=== PATIENT | female | born 1940 | race Caucasian/White ===

== ENCOUNTER 2017-11-22 17:34 | Observation (INO) | payer MEDICARE, OTHER ==
[~2017-11-22] VITALS: Ht 172.7 cm; Wt 56.0 kg
[2017-11-22 17:36] VITALS: BP 222/106; PULSE 123; RESP 18; TEMP 98.1; O2SAT 99
--- NOTE | 2017-11-22 19:57 | PD ---
HPI Chief Complaint: Hypertension Time Seen by Provider: 19:57 Travel History International Travel<30 days: No Contact w/Intl Traveler<30days: No Traveled to known affect area: No History of Present Illness HPI 77-year-old female who states she has a history of hypertension, currently not treated, presents the emergency department for evaluation of elevated blood pressure. Patient has also had some mild epigastric discomfort with associated nausea insert blood pressure has been elevated. She states that she just feels tired and off. Denies any fever or chills. No cough or chest congestion. No focal deficits or weakness. No other symptoms to report. PFSH Past Medical History Hypertension: Yes Social History Alcohol Use: No Tobacco Use: No Substance Use: No Allergies-Medications (Allergen,Severity, Reaction): Coded Allergies: penicillin G (Verified Allergy, Unknown, 11/22/17) Reported Meds & Prescriptions Reported Meds & Active Scripts Active Reported Potassium Chloride ER (Potassium Chloride) 10 Meq Cap 10 Meq PO DAILY Centrum Silver Women Tablet (Multivit-Min/Iron/Folic/Lutein) 8 Mg Iron-400 Mcg- 300 Mcg Tablet 1 Tab PO DAILY Vitamin C (Ascorbic Acid) 250 Mg Tab 1,000 Mg PO DAILY Aspirin Low Dose (Aspirin) 81 Mg Chew 81 Mg CHEW DAILY Review of Systems Except as stated in HPI: all other systems reviewed are Neg Physical Exam Narrative GENERAL: Well-nourished elderly female patient, in no acute distress. SKIN: Focused skin assessment warm/dry. HEAD: Atraumatic. Normocephalic. EYES: Pupils equal and round. No scleral icterus. No injection or drainage. ENT: No nasal bleeding or discharge. Mucous membranes pink and moist. NECK: Trachea midline. No JVD. CARDIOVASCULAR: Tachycardic rate and rhythm. RESPIRATORY: No accessory muscle use. Clear to auscultation. Breath sounds equal bilaterally. GASTROINTESTINAL: Abdomen soft, non-tender, nondistended. Hepatic and splenic margins not palpable. MUSCULOSKELETAL: No obvious deformities. No clubbing. No cyanosis. No edema. NEUROLOGICAL: Awake and alert. No obvious cranial nerve deficits. Motor grossly within normal limits. Normal speech. PSYCHIATRIC: Appropriate mood and affect; insight and judgment normal. Data Data Last Documented VS Vital Signs Date Time Temp Pulse Resp B/P (MAP) Pulse Ox O2 Delivery O2 Flow Rate FiO2 11/22/17 21:30 95 16 156/72 (100) 99 Room Air 11/22/17 17:36 98.1 Orders Orders Electrocardiogram (11/22/17 19:57) Basic Metabolic Panel (Bmp) (11/22/17 19:57) Ckmb (Isoenzyme) Profile (11/22/17 19:57) Complete Blood Count With Diff (11/22/17 19:57) Magnesium (Mg) (11/22/17 19:57) Prothrombin Time / Inr (Pt) (11/22/17 19:57) Act Partial Throm Time (Ptt) (11/22/17 19:57) Troponin I (11/22/17 19:57) Chest, Single Ap (11/22/17 19:57) Ecg Monitoring (11/22/17 19:57) Bilateral Bp Monitoring (11/22/17 19:57) Iv Access Insert/Monitor (11/22/17 19:57) Oximetry (11/22/17 19:57) Oxygen Administration (11/22/17 19:57) Aspirin Chew (Aspirin Chew) (11/22/17 20:00) Sodium Chloride 0.9% Flush (Ns Flush) (11/22/17 20:00) Sodium Chlorid 0.9% 500 Ml Inj (Ns 500 M (11/22/17 20:00) Hydralazine Inj (Apresoline Inj) (11/22/17 20:00) Labetalol Inj (Trandate Inj) (11/22/17 20:45) Potassium Chloride (Kcl) (11/22/17 21:30) CKMB (11/22/17 20:20) CKMB% (11/22/17 20:20) Labetalol (Trandate) (11/22/17 21:45) Activity Bed Rest With Brp (11/22/17 21:41) Vital Signs (Adult) Q4H (11/22/17 21:41) Cardiac Rhythm .As Directed (11/22/17 21:41) Notify Dr: Other .PRN (11/22/17 21:41) Notify Parameters (11/22/17 21:41) Resp Oxygen Nasal Cannula (11/22/17 ) Diet Npo (11/23/17 Breakfast) Ckmb (Isoenzyme) Profile (11/22/17 23:20) Ckmb (Isoenzyme) Profile (11/23/17 02:20) Troponin I (11/22/17 23:20) Troponin I (11/23/17 02:20) Electrocardiogram (11/22/17 23:10) Electrocardiogram (11/23/17 02:10) ^ Obtain (11/22/17 21:41) Sodium Chloride 0.9% Flush (Ns Flush) (11/22/17 21:45) Sodium Chloride 0.9% Flush (Ns Flush) (11/23/17 09:00) Acetaminophen (Tylenol) (11/22/17 21:45) Ondansetron Inj (Zofran Inj) (11/22/17 21:45) Nitroglycerin Sl (Nitrostat Sl) (11/22/17 21:45) Stone Derrickman And Rigger / Telemetry ANISA.Q8H (11/22/17 21:41) Emeka Bilateral/Knee High ANISA.QSHIFT (11/22/17 21:41) Admit Order (Ed Use Only) (11/22/17 21:41) Labs Laboratory Tests Test 11/22/17 20:20 White Blood Count 6.2 TH/MM3 Red Blood Count 5.12 MIL/MM3 Hemoglobin 14.2 GM/DL Hematocrit 41.5 % Mean Corpuscular Volume 81.1 FL Mean Corpuscular Hemoglobin 27.7 PG Mean Corpuscular Hemoglobin Concent 34.2 % Red Cell Distribution Width 13.1 % Platelet Count 392 TH/MM3 Mean Platelet Volume 8.1 FL Neutrophils (%) (Auto) 61.6 % Lymphocytes (%) (Auto) 25.0 % Monocytes (%) (Auto) 12.7 % Eosinophils (%) (Auto) 0.2 % Basophils (%) (Auto) 0.5 % Neutrophils # (Auto) 3.8 TH/MM3 Lymphocytes # (Auto) 1.6 TH/MM3 Monocytes # (Auto) 0.8 TH/MM3 Eosinophils # (Auto) 0.0 TH/MM3 Basophils # (Auto) 0.0 TH/MM3 CBC Comment DIFF FINAL Differential Comment Prothrombin Time 10.2 SEC Prothromb Time International Ratio 1.0 RATIO Activated Partial Thromboplast Time 25.7 SEC Blood Urea Nitrogen 4 MG/DL Creatinine 0.58 MG/DL Random Glucose 107 MG/DL Calcium Level 8.8 MG/DL Magnesium Level 2.0 MG/DL Sodium Level 133 MEQ/L Potassium Level 2.9 MEQ/L Chloride Level 96 MEQ/L Carbon Dioxide Level 28.5 MEQ/L Anion Gap 9 MEQ/L Estimat Glomerular Filtration Rate 101 ML/MIN Total Creatine Kinase 112 U/L Creatine Kinase MB 1.3 NG/ML Troponin I LESS THAN 0.02 NG/ML MDM Medical Decision Making Medical Screen Exam Complete: Yes Emergency Medical Condition: Yes Medical Record Reviewed: Yes Differential Diagnosis Hypertension versus hypertensive urgency versus ACS versus kidney disease versus elective right abnormality Narrative Course 77-year-old female presents to emergency department for evaluation. Patient is quite hypertensive and tachycardic upon arrival. She was given hydralazine. Patient's blood pressure remained high and she remained tachycardic. Systolic was greater than 200 sustained and her heart rate was greater than 120 bpm. I discussed this with my attending physician who advised labetalol 10 mg IV. Patient's heart rate then decreases to normal sinus rhythm and her blood pressure normalizes as well. Patient was nauseous initially with a epigastric/ chest discomfort. Once the blood pressure improved, this also resolved. I discussed the patient my attending physician. We feel that due to the patient' s or establishment with primary care, there is concern for cardiac etiology of the nausea and epigastric discomfort. She'll be admitted observation of chest pain center for serial troponins and observation. Plan is discussed with the patient and her family. They are in agreement with this plan of care. Laboratory Tests Test 11/22/17 20:20 White Blood Count 6.2 TH/MM3 Red Blood Count 5.12 MIL/MM3 Hemoglobin 14.2 GM/DL Hematocrit 41.5 % Mean Corpuscular Volume 81.1 FL Mean Corpuscular Hemoglobin 27.7 PG Mean Corpuscular Hemoglobin Concent 34.2 % Red Cell Distribution Width 13.1 % Platelet Count 392 TH/MM3 Mean Platelet Volume 8.1 FL Neutrophils (%) (Auto) 61.6 % Lymphocytes (%) (Auto) 25.0 % Monocytes (%) (Auto) 12.7 % Eosinophils (%) (Auto) 0.2 % Basophils (%) (Auto) 0.5 % Neutrophils # (Auto) 3.8 TH/MM3 Lymphocytes # (Auto) 1.6 TH/MM3 Monocytes # (Auto) 0.8 TH/MM3 Eosinophils # (Auto) 0.0 TH/MM3 Basophils # (Auto) 0.0 TH/MM3 CBC Comment DIFF FINAL Differential Comment Prothrombin Time 10.2 SEC Prothromb Time International Ratio 1.0 RATIO Activated Partial Thromboplast Time 25.7 SEC Blood Urea Nitrogen 4 MG/DL Creatinine 0.58 MG/DL Random Glucose 107 MG/DL Calcium Level 8.8 MG/DL Magnesium Level 2.0 MG/DL Sodium Level 133 MEQ/L Potassium Level 2.9 MEQ/L Chloride Level 96 MEQ/L Carbon Dioxide Level 28.5 MEQ/L Anion Gap 9 MEQ/L Estimat Glomerular Filtration Rate 101 ML/MIN Total Creatine Kinase 112 U/L Creatine Kinase MB 1.3 NG/ML Troponin I LESS THAN 0.02 NG/ML Diagnosis Primary Impression: Atypical chest pain Additional Impression: Hypertension Qualified Codes: I10 - Essential (primary) hypertension Admitting Information Admitting Physician Requests: Observation Condition: Stable Tanya Zayas Nov 22, 2017 19:57
[2017-11-22] MEDS ORDERED: hydrALAZINE HCL 20 MG/ML VIAL IV PUSH ONE (20:00)
[2017-11-22] MEDS ORDERED: SODIUM CHLORIDE 0.9% FLUSH 10 ML FLUSH IVF PRN (20:00)
[2017-11-22] MEDS ORDERED: ASPIRIN 81 MG CHEW TAB PO ONE (20:00)
[2017-11-22] MEDS ORDERED: SODIUM CHLORID 0.9% 500 ML INJ 500 ML IV ONE (20:00)
[2017-11-22 20:02] VITALS: BP 224/97
[2017-11-22] MEDS ORDERED: VITA250T3 PO (20:02)
[2017-11-22] MEDS ORDERED: ASPI81CH6 CHEW (20:02)
[2017-11-22] MEDS ORDERED: MULT1TAB61 PO (20:02)
[2017-11-22] MEDS ORDERED: POTA10CA PO (20:02)
--- NOTE | 2017-11-22 20:23 | RADRPT ---
EXAM DATE/TIME: 11/22/2017 20:08 [facility] COMPARISON: No previous studies available for comparison. INDICATIONS : Shortness of breath. MEDICAL HISTORY : Hypertension. SURGICAL HISTORY : None. ENCOUNTER: Initial ACUITY: 1 day PAIN SCORE: 0/10 LOCATION: Bilateral chest FINDINGS: A single view of the chest demonstrates the lungs to be symmetrically aerated without evidence of mas s, infiltrate or effusion. There is hyperaeration bilaterally. There is chronic pleural thickening a t both apices. The cardiomediastinal contours are unremarkable. Osseous structures are intact. CONCLUSION: No acute pulmonary infiltrates. Jonathan Carvajal MD on November 22, 2017 at 20:20 Board Certified Radiologist. This report was verified electronically.
[2017-11-22 20:45] VITALS: BP 189/81; PULSE 93; RESP 16; O2SAT 100
[2017-11-22] MEDS ORDERED: LABETALOL HCL 100 MG/20 ML VIAL IV PUSH ONE (20:45)
[2017-11-22 20:53] LABS: AUTOMATED NEUTROPHIL # 3.8 TH/MM3 (1.8-7.7); BASOPHIL % 0.5 % (0.0-2.0); EOSINOPHIL % 0.2 % (0.0-4.0); HEMATOCRIT 41.5 % (35.0-46.0); HEMOGLOBIN 14.2 GM/DL (11.6-15.3); LYMPHOCYTE # 1.6 TH/MM3 (1.0-4.8); MEAN CELL VOLUME 81.1 FL (80.0-100.0); MEAN CORPUSCULAR HEMOGLOBIN 27.7 PG (27.0-34.0); MEAN CORPUSCULAR HGB CONC 34.2 % (32.0-36.0); MEAN PLATELET VOLUME 8.1 FL (7.0-11.0); MONO % 12.7 % (0.0-8.0); MONOCYTE # 0.8 TH/MM3 (0-0.9); NEUT % 61.6 % (16.0-70.0); PLATELET COUNT 392 TH/MM3 (150-450); RED BLOOD COUNT 5.12 MIL/MM3 (4.00-5.30); RED CELL DISTRIBUTION WIDTH 13.1 % (11.6-17.2); WHITE BLOOD COUNT 6.2 TH/MM3 (4.0-11.0)
[2017-11-22 21:18] LABS: BICARBONATE 28.5 MEQ/L (21.0-32.0); BLOOD UREA NITROGEN 4 MG/DL (7-18); CALCIUM 8.8 MG/DL (8.5-10.1); CHLORIDE 96 MEQ/L (98-107); CREATININE 0.58 MG/DL (0.50-1.00); GLOMERULAR FILTRATION RATE 101 ML/MIN (>89); GLUCOSE,RANDOM 107 MG/DL (74-106); PROTHROMBIN TIME - PATIENT 10.2 SEC (9.8-11.6); SODIUM (NA) 133 MEQ/L (136-145)
[2017-11-22 21:23] LABS: TROPONIN I LESS THAN 0.02 NG/ML (0.02-0.05)
[2017-11-22 21:30] VITALS: BP 156/72; PULSE 95; RESP 16; O2SAT 99
[2017-11-22] MEDS ORDERED: POTASSIUM CHLORIDE 20 MEQ CONTROLLED RELEASE TAB PO ONE (21:30)
[2017-11-22] MEDS ORDERED: NITROGLYCERIN 0.4 MG SL 25 TABS/BTL SL PRN (21:45)
[2017-11-22] MEDS ORDERED: LABETALOL HCL 100 MG TAB PO ONE (21:45)
[2017-11-22] MEDS ORDERED: ACETAMINOPHEN 500 MG CPLT PO PRN (21:45)
[2017-11-22] MEDS ORDERED: SODIUM CHLORIDE 0.9% FLUSH 10 ML FLUSH IV FLUSH PRN (21:45)
[2017-11-22] MEDS ORDERED: ONDANSETRON HCL 4 MG/2 ML VIAL IV PUSH PRN (21:45)
[2017-11-22 22:00] VITALS: BP 133/63; PULSE 85; RESP 16; O2SAT 98
[2017-11-22 23:30] VITALS: BP 144/67; PULSE 97; RESP 16; O2SAT 97
[2017-11-23 00:03] LABS: TROPONIN I LESS THAN 0.02 NG/ML (0.02-0.05)
[2017-11-23 01:15] VITALS: BP 118/57; PULSE 76; RESP 18; TEMP 98; O2SAT 96
[2017-11-23] MEDS: D5-1/2 NS + KCL 40 MEQ INJ 1,000 ML IV SCH ×2 (01:43→07:45)
[2017-11-23 01:46] VITALS: PULSE 92
[2017-11-23 04:00] VITALS: PULSE 85
[2017-11-23 04:00] LABS: TROPONIN I LESS THAN 0.02 NG/ML (0.02-0.05)
[2017-11-23 05:17] VITALS: BP 157/78; PULSE 105; RESP 18; TEMP 98.1; O2SAT 99
[2017-11-23] MEDS ORDERED: ACETAMINOPHEN 500 MG CPLT PO PRN (07:45)
[2017-11-23 08:18] LABS: BICARBONATE 23.6 MEQ/L (21.0-32.0); CALCIUM 8.3 MG/DL (8.5-10.1); CREATININE 0.78 MG/DL (0.50-1.00)
[2017-11-23 08:20] VITALS: PULSE 98
[2017-11-23 08:26] VITALS: BP 139/79; PULSE 106; RESP 18; TEMP 98.2; O2SAT 96
[2017-11-23] MEDS ORDERED: ASPIRIN 325 MG TAB PO SCH (09:00)
[2017-11-23] MEDS ORDERED: SODIUM CHLORIDE 0.9% FLUSH 10 ML FLUSH IV FLUSH SCH (09:00)
--- NOTE | 2017-11-23 09:15 | HHI.HP ---
HPI Service Chest pain center Primary Care Physician No Primary Care Physician Chief Complaint Elevated blood pressure History of Present Illness Pleasant 77-year-old lady who recently had an episode of the flu resulting in heart coughing and rib pain associated. She was seen in an urgent care center and evaluated on Saturday, placed on antibiotics, but noted to have high blood pressure. She has not seen a physician in years but basically has had no physical problems. Since being told her blood pressure was elevated she has been watching and when she developed some epigastric discomfort and slight nausea she presented to the emergency room. Her blood pressure was significantly elevated and she was quite tachycardic. Since arrival her blood pressure has been controlled and she is feeling much better. She has had no chest pain or cardiac related symptoms at all. Past Family Social History Allergies: Coded Allergies: penicillin G (Verified Allergy, Unknown, 11/22/17) Past Medical History She denies any problems whatsoever other than shingles involving her neck and head about a year ago. She has not felt the need to see a physician in many years. Past Surgical History None Reported Medications Reported Meds & Active Scripts Active Reported Potassium Chloride ER (Potassium Chloride) 10 Meq Cap 10 Meq PO DAILY Centrum Silver Women Tablet (Multivit-Min/Iron/Folic/Lutein) 8 Mg Iron-400 Mcg- 300 Mcg Tablet 1 Tab PO DAILY Vitamin C (Ascorbic Acid) 250 Mg Tab 1,000 Mg PO DAILY Aspirin Low Dose (Aspirin) 81 Mg Chew 81 Mg CHEW DAILY Active Ordered Medications Current Medications Medications (Trade) Dose Ordered Sig/Zac Route Start Time Stop Time Status Last Admin (NS Flush) 2 ml UNSCH PRN IV FLUSH 11/22/17 21:45 (NS Flush) 2 ml BID IV FLUSH 11/23/17 09:00 (Zofran Inj) 4 mg Q6H PRN IV PUSH 11/22/17 21:45 (Nitrostat Sl) 0.4 mg Q5M PRN SL 11/22/17 21:45 Potassium Chloride/Dextrose/ Sod Cl 1,000 ml @ 125 mls/hr Q8H IV 11/22/17 23:45 11/23/17 01:43 (Tylenol) 500 mg Q4H PRN PO 11/23/17 07:45 (Aspirin) 325 mg DAILY PO 11/23/17 09:00 Family History Mother age 79 of colon cancer Father age 80 complications from prostate surgery Social History Patient uses no alcohol tobacco or substances Physical Exam Vital Signs Vital Signs Date Time Temp Pulse Resp B/P (MAP) Pulse Ox O2 Delivery O2 Flow Rate FiO2 11/23/17 08:26 98.2 106 18 139/79 (99) 96 11/23/17 05:17 98.1 105 18 157/78 (104) 99 11/23/17 04:00 85 11/23/17 01:46 92 11/23/17 01:15 98.0 76 18 118/57 (77) 96 11/22/17 23:56 11/22/17 23:30 97 16 144/67 (92) 97 Room Air 11/22/17 22:00 85 16 133/63 (86) 98 Room Air 11/22/17 21:30 95 16 156/72 (100) 99 Room Air 11/22/17 20:45 93 16 189/81 (117) 100 Room Air 11/22/17 20:02 224/97 (139) 11/22/17 17:36 98.1 123 18 222/106 (144) 99 Physical Exam GENERAL: Well-nourished well-developed lady in no acute distress SKIN: Warm and dry. 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 HEAD: Atraumatic. Normocephalic. EYES: Pupils equal and round. No scleral icterus. No injection or drainage. ENT: No nasal bleeding or discharge. Mucous membranes pink and moist. NECK: Trachea midline. No JVD. CARDIOVASCULAR: Regular rate and rhythm. Soft grade 2/6 systolic murmur heard best at the left sternal border. RESPIRATORY: No accessory muscle use. Clear to auscultation. Breath sounds equal bilaterally. GASTROINTESTINAL: Abdomen soft, non-tender, nondistended. Hepatic and splenic margins not palpable. MUSCULOSKELETAL: Extremities without clubbing, cyanosis, or edema. No obvious deformities. NEUROLOGICAL: Awake and alert. No obvious cranial nerve deficits. Motor grossly within normal limits. Five out of 5 muscle strength in the arms and legs. Normal speech. PSYCHIATRIC: Appropriate mood and affect; insight and judgment normal. Laboratory Laboratory Tests Test 11/22/17 20:20 11/22/17 23:30 11/23/17 03:12 White Blood Count 6.2 Red Blood Count 5.12 Hemoglobin 14.2 Hematocrit 41.5 Mean Corpuscular Volume 81.1 Mean Corpuscular Hemoglobin 27.7 Mean Corpuscular Hemoglobin Concent 34.2 Red Cell Distribution Width 13.1 Platelet Count 392 Mean Platelet Volume 8.1 Neutrophils (%) (Auto) 61.6 Lymphocytes (%) (Auto) 25.0 Monocytes (%) (Auto) 12.7 Eosinophils (%) (Auto) 0.2 Basophils (%) (Auto) 0.5 Neutrophils # (Auto) 3.8 Lymphocytes # (Auto) 1.6 Monocytes # (Auto) 0.8 Eosinophils # (Auto) 0.0 Basophils # (Auto) 0.0 CBC Comment DIFF FINAL Differential Comment Prothrombin Time 10.2 Prothromb Time International Ratio 1.0 Activated Partial Thromboplast Time 25.7 Blood Urea Nitrogen 4 6 Creatinine 0.58 0.78 Random Glucose 107 128 Calcium Level 8.8 8.3 Magnesium Level 2.0 Sodium Level 133 135 Potassium Level 2.9 3.2 Chloride Level 96 99 Carbon Dioxide Level 28.5 23.6 Anion Gap 9 12 Estimat Glomerular Filtration Rate 101 72 Total Creatine Kinase 112 84 77 Creatine Kinase MB 1.3 Troponin I LESS THAN 0.02 LESS THAN 0.02 LESS THAN 0.02 Result Diagram: 11/22/17201911/23/172 Imaging Chest x-ray unremarkable Course Patient has ruled out for ACS and blood pressure is under reasonable control. She remains slightly tachycardic. She is able to walk with no difficulty and although she has had no cardiac complaints we will evaluate with an ETT prior to discharge for completeness of protocol. Caprini VTE Risk Assessment Caprini VTE Risk Assessment: No/Low Risk (score <= 1) Caprini Risk Assessment Model Point Value = 1 Point Value = 2 Point Value = 3 Point Value = 5 Age 41-60 Minor surgery BMI > 25 kg/m2 Swollen legs Varicose veins or History of unexplained or recurrent spontaneous Oral contraceptives or hormone replacement Sepsis (< 1 month) Serious lung disease, including pneumonia (< 1 month) Abnormal pulmonary function Acute myocardial infarction Congestive heart failure (< 1 month) History of inflammatory bowel disease Medical patient at bed rest Age 61-74 Arthroscopic surgery Major open surgery (> 45 min) Laparoscopic surgery (> 45 min) Malignancy Confined to bed (> 72 hours) Immobilizing plaster cast Central venous access Age >= 75 History of VTE Family history of VTE Factor V Leiden Prothrombin [id number] Lupus anticoagulant Anticardiolipin antibodies Elevated serum homocysteine Heparin-induced thrombocytopenia Other congenital or acquired thrombophilia Stroke (< 1 month) Elective arthroplasty Hip, pelvis, or leg fracture Acute spinal cord injury (< 1 month) Prophylaxis Regimen Total Risk Factor Score Risk Level Prophylaxis Regimen 0-1 Low Early ambulation 2 Moderate Order ONE of the following: *Sequential Compression Device (SCD) *Heparin 5000 units SQ BID 3-4 Higher Order ONE of the following medications: *Heparin 5000 units SQ TID *Enoxaparin/Lovenox 40 mg SQ daily (WT < 150 kg, CrCl > 30 mL/min) *Enoxaparin/Lovenox 30 mg SQ daily (WT < 150 kg, CrCl > 10-29 mL/min) *Enoxaparin/Lovenox 30 mg SQ BID (WT < 150 kg, CrCl > 30 mL/min) AND/OR *Sequential Compression Device (SCD) 5 or more Highest Order ONE of the following medications: *Heparin 5000 units SQ TID (Preferred with Epidurals) *Enoxaparin/Lovenox 40 mg SQ daily (WT < 150 kg, CrCl > 30 mL/min) *Enoxaparin/Lovenox 30 mg SQ daily (WT < 150 kg, CrCl > 10-29 mL/min) *Enoxaparin/Lovenox 30 mg SQ BID (WT < 150 kg, CrCl > 30 mL/min) AND *Sequential Compression Device (SCD) Assessment and Plan Problem List: (1) Hypertension ICD Codes: I10 - Essential (primary) hypertension Status: Acute Plan: Will discharge on a beta-sayda and amlodipine with strict instructions to establish with primary care physician for immediate follow-up. Assessment and Plan We will discharge on beta-sayda and calcium channel sayda with strict instructions to follow up with primary care physician for long-term management and control of blood pressure along with much-needed general exam. Also instructed to follow-up regarding lesion on right hand. Patient and assure me they will do so. Code Status Full code Discussed Condition With Discussed with nurse practitioner, patient, and Problem Qualifiers (1) Hypertension: Qualified Codes: I10 - Essential (primary) hypertension Bib Nolan MD Nov 23, 2017 09:15
[2017-11-23] MEDS ORDERED: amLODIPine BESYLATE 5 MG TAB PO ONE (10:45)
[2017-11-23] MEDS ORDERED: METOPROLOL TARTRATE 25 MG TAB PO ONE (10:45)
[2017-11-23] MEDS ORDERED: AMLO5TAB2 PO (10:58)
[2017-11-23] MEDS ORDERED: METO25TA3 PO (10:58)
--- NOTE | 2017-11-23 10:59 | HHI.DCPOC ---
Discharge Care Plan Diagnosis: (1) Sinus tachycardia (2) Hypertension Goals to Promote Your Health * To prevent worsening of your condition and complications * To maintain your health at the optimal level Directions to Meet Your Goals Take your medications as prescribed Follow your dietary instruction Follow activity as directed Keep your appointments as scheduled Take your immunizations and boosters as scheduled If your symptoms worsen call your PCP, if no PCP go to Urgent Care Center or Emergency Room Smoking is Dangerous to Your Health. Avoid second hand smoke Call the 24-hour hour crisis hotline for domestic abuse at Sharon Sool Nov 23, 2017 10:59
--- NOTE | 2017-11-23 16:24 | EKG ---
Date Performed: 11/23/2017 Time Performed: 02:48:40 PTAGE: 77 years EKG: SINUS TACHYCARDIA ABNORMAL RHYTHM ECG NO SIG CHANGE PREVIOUS TRACING : 11/22/2017 23.44 DOCTOR: Bib Nolan Interpretating Date/Time 11/25/2017 07:27:52
--- NOTE | 2017-11-23 16:25 | EKG ---
Date Performed: 11/22/2017 Time Performed: 23:44:01 PTAGE: 77 years EKG: SINUS TACHYCARDIA LEFT VENTRICULAR HYPERTROPHY AND ST-T CHANGE ABNORMAL ECG NO SIG CHANGE PREVIOUS TRACING : 11/22/2017 20.11 DOCTOR: Bib Nolan Interpretating Date/Time 11/23/2017 16:25:21
--- NOTE | 2017-11-23 16:26 | EKG ---
Date Performed: 11/22/2017 Time Performed: 20:11:11 PTAGE: 77 years EKG: SINUS TACHYCARDIA LEFT VENTRICULAR HYPERTROPHY AND ST-T CHANGE ABNORMAL ECG CLINICAL CORREL ATION NEEDED NO PREVIOUS TRACING DOCTOR: Bib Nolan Interpretating Date/Time 11/23/2017 16:25:47
--- NOTE | 2017-11-23 16:32 | TR ---
Date Performed: 11/23/2017 Time Performed: 10:12:23 DOCTOR: Bib Nolan DRUG LIST: CLINICAL HISTORY: CHEST PAIN REASON FOR TEST: Chest pain REASON FOR ENDING: OBSERVATION: CONCLUSION: Nimesh protocol completed. Near target heart rate prior to exam. Stopped sec to excee ding target heart rate and leg fatigue. Maximum UK=154 Target HR Rcorfmvg=334.0% Maximum JP=391/80 To luis daniel Exercise Time=1:06. No reprod chest discomfort. No ectopy. No st t segment changes to suggest isc hemia. Poor exercise tolerance. Normal bp response. Recovery quick and unremarkable. Suboptimal test due to length of exam. COMMENTS:
== END 2017-11-23 12:02 | disposition home or self-care (01) ==
LOC: NEPE 17:34 → NEDA 21:44 → NEPGCP 11-23 00:21
PROVIDERS: ADMIT Internal Medicine Cardiovascular Disease; ATTEND Internal Medicine Cardiovascular Disease
DX: I10 Essential (primary) hypertension (principal); R07.89 Other chest pain; R05 Cough; R07.81 Pleurodynia; R10.13 Epigastric pain; R11.0 Nausea; R00.0 Tachycardia, unspecified; R94.31 Abnormal electrocardiogram [ECG] [EKG]; Z79.899 Other long term (current) drug therapy
CPT/HCPCS: 71045; 80048; 82550; 82552; 83735; 84484; 85025; 85610; 85730; 93005; 93017; 96361; 96365; 96366; 96375; 99285; G0378; J0360; J3480; J7040

== ENCOUNTER 2018-04-14 08:02 | Inpatient (IN) ==
--- NOTE | 2018-04-14 08:31 | ED ---
HPI General Chief complaint: Stroke Alert Stated complaint: Stroke Alert Time Seen by Provider: 04/14/18 08:17 History of Present Illness HPI narrative: Patient brought in by EMS secondary to possible stroke. states that she was at the table and all of a sudden he heard a coffee cup break he went into the room and the patient was unresponsive. States that was about 2-3 minutes. He was nonverbal when she came to started to become more arousable when EMS arrived. Per EMS she had some left sided weakness and left facial droop. Patient states that she cannot remember what happened. Denies chest pain, headache, nausea, vomiting, numbness, tingling, weakness, abdominal pain or shortness of breath Related Data Home Medications Medication Instructions Recorded Confirmed aspirin [Aspir-81] 81 mg PO DAILY 04/14/18 04/14/18 losartan 04/14/18 04/14/18 metoprolol tartrate 25 mg PO BID 04/14/18 04/14/18 Allergies Allergy/AdvReac Type Severity Reaction Status Date / Time penicillin G Allergy Unknown Verified 11/22/17 19:55 Review of Systems ROS Unobtainable All other systems reviewed negative except as stated in HPI [facility] Medical History Medical History History of hysterectomy (Acute) Hypertension (Acute) Syncope (Acute) Social History Social History Substance History: No History of Abuse Second Hand Smoke Exposure: No Smoking Status: Never smoker How Often Do You Have a Drink Containing Alcohol: Never Recent Travel in [facility] within the Last 8 Weeks: No Recent Out of Country Travel within the Last 8 Weeks: No Exam Narrative Exam Narrative: GENERAL: No acute distress peer SKIN: Focused skin assessment warm/dry. HEAD: Atraumatic. Normocephalic. EYES: Pupils equal and round. No scleral icterus. No injection or drainage. Intraocular muscles intact bilaterally. ENT: No nasal bleeding or discharge. Mucous membranes pink and moist. NECK: Trachea midline. No JVD. CARDIOVASCULAR: Regular rate and rhythm. No murmur appreciated. RESPIRATORY: No accessory muscle use. Clear to auscultation. Breath sounds equal bilaterally. GASTROINTESTINAL: Abdomen soft, non-tender, nondistended. Hepatic and splenic margins not palpable. MUSCULOSKELETAL: No obvious deformities. No clubbing. No cyanosis. No edema. 5 /5 bilat UE and LE. NEUROLOGICAL: Awake and alert. No obvious cranial nerve deficits. Motor grossly within normal limits. Normal speech. PSYCHIATRIC: Appropriate mood and affect; insight and judgment normal. Course Initial Documented Vital Signs Temperature 98.1 F 04/14/18 08:04 Pulse Rate 88 04/14/18 08:04 Respiratory Rate 14 04/14/18 08:04 Blood Pressure 170/77 H 04/14/18 08:04 Pulse Oximetry 99 04/14/18 08:04 Last Documented Vital Signs Temperature 98.1 F 04/14/18 08:04 Pulse Rate 91 H 04/14/18 09:27 Respiratory Rate 12 04/14/18 09:27 Blood Pressure 182/81 H 04/14/18 09:27 Pulse Oximetry 100 04/14/18 09:27 Medical Decision Making MDM Narrative Medical decision making narrative: Patient stroke alert. Placed on security monitor, continuous pulse ox, IV access obtained. NIH stroke scale 0. Patient without any neuro deficits. Stroke alert protocol ordered. 15: Dr. Michaels, neurology on-call consulted. Advised that since patient is normal neurologically would not give TPA. Also recommend CTA head and neck. Dr Michaels called when patient returned from CT. No neuro deficits no acute evidence of CTA, would hold tPA. ECG: Sr, rate 87, normal intervals and axis, STD II, III, AvF, TWI in V2 and V1 Patient admitted to Dr. Frank who will place order fro MRI brain w/wo and EEG per Dr Michaels's request. Labs: Slight increase in glucose; CTA neck: CONCLUSION:1. Moderate calcified scarring plaquing at the left carotid bifurcation. This is causing some focal moderate stenosis on the order of 50-60%.2. Mild to moderate calcified atherosclerotic plaquing at the right carotid bifurcation. No focal or significant stenosis involving the right internal carotid artery. CT head: CONCLUSION:1. 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 Right basal ganglia lacunar infarct of indeterminate age. CXR: FINDINGS: A single AP view of the chest demonstrates the lungs to be symmetrically aerated without evidence of mass, infiltrate or effusion. There is some hyperaeration bilaterally. There is pleural thickening in both apices. The cardiomediastinal contours are unremarkable. Osseous structures are intact. CTA brain: CONCLUSION:1. Unremarkable CTA of the brain. U/A pending at time of admission. Admit MD to follow. Differential Diagnosis Differential Diagnosis: Seizure, ICH, CVA, TIA Lab Data Result diagrams: 04/14/18 08:15 04/14/18 08:15 Lab Results 04/14/18 04/14/18 04/14/18 Range/Units 08:15 08:15 08:15 WBC 7.6 (4.0-11.0) th/mm3 RBC 4.31 (4.00-5.30) mil/mm3 Hgb 12.3 (11.6-15.3) gm/dL POC Hgb (Calc) (11.6-15.3) g/dL Hct 36.5 (35.0-46.0) % POC Hct (35-46.0) % MCV 84.7 (80.0-100.0) fL MCH 28.5 (27.0-34.0) pg MCHC 33.6 (32.0-36.0) % RDW 13.1 (11.6-17.2) % Plt Count 429 (150-450) th/mm3 MPV 7.4 (7.0-11.0) fL Neut % (Auto) 54.0 (16.0-70.0) % Lymph % (Auto) 33.5 (9.0-44.0) % [place] % (Auto) 9.4 H (0.0-8.0) % Eos % (Auto) 2.8 (0.0-4.0) % Baso % (Auto) 0.3 (0.0-2.0) % Neut # (Auto) 4.1 (1.8-7.7) th/mm3 Lymph # (Auto) 2.5 (1.0-4.8) th/mm3 [place] # (Auto) 0.7 (0.0-0.9) th/mm3 Eos # (Auto) 0.2 (0.0-0.4) th/mm3 Baso # (Auto) 0.0 (0.0-0.2) th/mm3 WBC Differential . Differential Comment Auto diff final PT 10.1 (9.8-11.6) sec INR 1.0 Ratio APTT 22.1 L (24.3-30.1) sec Fibrinogen 360 (227-377) mg/dL POC Sodium (137-144) mmol/L Sodium (136-145) meq/L POC Potassium (3.6-5.0) mmol/L Potassium (3.5-5.1) meq/L POC Chloride (102-111) mmol/L Chloride (98-107) meq/L Carbon Dioxide (21.0-32.0) meq/L Anion Gap (5-15) meq/L POC BUN (5-21) mg/dL BUN (7-18) mg/dL Creatinine (0.50-1.00) mg/dL POC Creatinine (0.6-1.3) mg/dL Estimated GFR (>89) mL/min POC Glucose (68-110) mg/dL Random Glucose (74-106) mg/dL Calcium (8.5-10.1) mg/dL Magnesium (1.5-2.5) mg/dL Total Bilirubin (0.2-1.0) mg/dL AST (15-37) U/L ALT (10-53) U/L Alkaline Phosphatase (45-117) U/L Total Creatine Kinase Cancelled Troponin I Cancelled Total Protein (6.4-8.2) g/dL Albumin (3.4-5.0) g/dL Blood Type Blood Type Recheck Antibody Screen 04/14/18 04/14/18 Range/Units 08:15 08:15 WBC (4.0-11.0) th/mm3 RBC (4.00-5.30) mil/mm3 Hgb (11.6-15.3) gm/dL POC Hgb (Calc) 11.9 (11.6-15.3) g/dL Hct (35.0-46.0) % POC Hct 35.0 (35-46.0) % MCV (80.0-100.0) fL MCH (27.0-34.0) pg MCHC (32.0-36.0) % RDW (11.6-17.2) % Plt Count (150-450) th/mm3 MPV (7.0-11.0) fL Neut % (Auto) (16.0-70.0) % Lymph % (Auto) (9.0-44.0) % [place] % (Auto) (0.0-8.0) % Eos % (Auto) (0.0-4.0) % Baso % (Auto) (0.0-2.0) % Neut # (Auto) (1.8-7.7) th/mm3 Lymph # (Auto) (1.0-4.8) th/mm3 [place] # (Auto) (0.0-0.9) th/mm3 Eos # (Auto) (0.0-0.4) th/mm3 Baso # (Auto) (0.0-0.2) th/mm3 WBC Differential Differential Comment PT (9.8-11.6) sec INR Ratio APTT (24.3-30.1) sec Fibrinogen (227-377) mg/dL POC Sodium 136 L (137-144) mmol/L Sodium 137 (136-145) meq/L POC Potassium 4.0 (3.6-5.0) mmol/L Potassium 4.0 (3.5-5.1) meq/L POC Chloride 100 L (102-111) mmol/L Chloride 104 (98-107) meq/L Carbon Dioxide 21.3 (21.0-32.0) meq/L Anion Gap 12 (5-15) meq/L POC BUN 7 (5-21) mg/dL BUN 7 (7-18) mg/dL Creatinine 0.62 (0.50-1.00) mg/dL POC Creatinine 0.5 L (0.6-1.3) mg/dL Estimated GFR Greater than 89 (>89) mL/min POC Glucose 142 H (68-110) mg/dL Random Glucose 137 H (74-106) mg/dL Calcium 8.4 L (8.5-10.1) mg/dL Magnesium 2.1 (1.5-2.5) mg/dL Total Bilirubin 0.4 (0.2-1.0) mg/dL AST 14 L (15-37) U/L ALT 21 (10-53) U/L Alkaline Phosphatase 90 (45-117) U/L Total Creatine Kinase 70 Troponin I Less than 0.02 L Total Protein 6.7 (6.4-8.2) g/dL Albumin 3.7 (3.4-5.0) g/dL Blood Type B Positive Blood Type Recheck Required Antibody Screen Negative Imaging Data Radiologist's impression: ITS Impressions Head CTA 04/14/18 00:00 CONCLUSION: 1. Unremarkable CTA of the brain. Chest X-Ray 04/14/18 08:08 CONCLUSION: Head CT 04/14/18 08:08 CONCLUSION: 1. 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 2. Right basal ganglia lacunar infarct of indeterminate age. Neck CTA 04/14/18 08:08 CONCLUSION: 1. Moderate calcified scarring plaquing at the left carotid bifurcation. This is causing some focal moderate stenosis on the order of 50-60%. 2. Mild to moderate calcified atherosclerotic plaquing at the right carotid bifurcation. No focal or significant stenosis involving the right internal carotid artery. Discharge Plan Discharge Disposition Patient Disposition: 30 Still Patient Discharge Condition Condition: Stable Discharge Details Discharge Problem: Transient cerebral ischemia Physicians Team ED Provider: Marybeth Ashraf Primary Care Provider: Primary Care Kaley Wang Attending Provider: Neto Frank Discharge Interventions Interventions: Vital Signs Last Done: 04/14/18 09:27 Status ED Status: Admitted Patient
[2018-04-14 08:36] LABS: Baso % (Auto) 0.3 % (0.0-2.0); Eos # (Auto) 0.2 th/mm3 (0.0-0.4); Eos % (Auto) 2.8 % (0.0-4.0); Hematocrit 36.5 % (35.0-46.0); Hemoglobin 12.3 gm/dL (11.6-15.3); Lymph # (Auto) 2.5 th/mm3 (1.0-4.8); Lymph % (Auto) 33.5 % (9.0-44.0); Mean Corpuscular HGB Conc 33.6 % (32.0-36.0); Mean Corpuscular Hemoglobin 28.5 pg (27.0-34.0); Mean Corpuscular Volume 84.7 fL (80.0-100.0); Mean Platelet Volume 7.4 fL (7.0-11.0); Mono # (Auto) 0.7 th/mm3 (0.0-0.9); Mono % (Auto) 9.4 % (0.0-8.0); Neut # (Auto) 4.1 th/mm3 (1.8-7.7); Platelet Count 429 th/mm3 (150-450); Red Blood Count 4.31 mil/mm3 (4.00-5.30); Red Cell Distribution Width 13.1 % (11.6-17.2); White Blood Count 7.6 th/mm3 (4.0-11.0)
[2018-04-14 08:45] LABS: Activated Partial Thrombo Time 22.1 sec (24.3-30.1); Prothrombin Time 10.1 sec (9.8-11.6)
[2018-04-14 08:50] LABS: Alanine Aminotransferase 21 U/L (10-53); Albumin 3.7 g/dL (3.4-5.0); Anion Gap 12 meq/L (5-15); Aspartate Aminotransferase 14 U/L (15-37); Blood Urea Nitrogen 7 mg/dL (7-18); Calcium 8.4 mg/dL (8.5-10.1); Carbon Dioxide 21.3 meq/L (21.0-32.0); Chloride 104 meq/L (98-107); Glomerular Filtration Rate Greater Than 89 mL/min (>89); Glucose,Random 137 mg/dL (74-106); Magnesium 2.1 mg/dL (1.5-2.5); Sodium 137 meq/L (136-145)
[2018-04-14] MEDS: Sod Chloride 0.9% Inj 1,000 ML IV.CONT SCH (08:53)
[2018-04-14 08:54] LABS: Alkaline Phosphatase 90 U/L (45-117); Total Protein 6.7 g/dL (6.4-8.2)
[2018-04-14 08:56] LABS: Creatine Kinase 70 U/L (26-192)
--- NOTE | 2018-04-14 09:09 | XR ---
EXAM DATE: 04/14/2018 9:06 AM EDT AGE/SEX: 77 years / Female INDICATIONS: Stoke alert, short of breath CLINICAL DATA: This is the patient's initial encounter. Patient reports that signs and symptoms have been present for 1 day and indicates a pain score of Nonresponsive. MEDICAL/SURGICAL HISTORY: Non-responsive. Arthroscopy. COMPARISON: No prior exams available for comparison. FINDINGS: A single AP view of the chest demonstrates the lungs to be symmetrically aerated without evidence of mass, infiltrate or effusion. There is some hyperaeration bilaterally. There is pleural thickening in both apices. The cardiomediastinal contours are unremarkable. Osseous structures are intact. CONCLUSION: Electronically signed by: Jonathan Carvajal MD 04/14/2018 9:08 AM EDT
--- NOTE | 2018-04-14 09:45 | P.HPIM ---
<Teena Patel E - Last Filed: 04/15/18 17:42> History of Present Illness Primary Care Physician: No Primary Care Physician - Diagnosis (1) CVA (cerebral vascular accident) Inpatient Certification: I certify that the inpatient services were ordered in accordance with Medicare regulations governing the order. This includes certification that hospital inpatient services are reasonable and necessary and in the case of services not specified as inpatient-only under 42 CFR 419.22(n), that they are appropriately provided as inpatient services in accordance to with the 2-midnight benchmark under 43 CFR 412.3(e) [facility] - Medical History Medical History: Medical History (Last Updated 04/14/18 @ 08:50 by Erika Whyte) History of hysterectomy Hypertension Syncope Medications and Allergies Allergies Allergy/AdvReac Type Severity Reaction Status Date / Time penicillin G Allergy Unknown Verified 11/22/17 19:55 Home Medications Medication Instructions Recorded Confirmed Type aspirin [Aspir-81] 81 mg PO DAILY 04/14/18 04/14/18 History losartan 25 mg PO DAILY 04/14/18 04/15/18 History metoprolol tartrate 25 mg PO BID 04/14/18 04/14/18 History Active Medications: Active Medications Aspirin (Aspirin) 325 mg PO DAILY [facility] Last Admin: 04/15/18 09:02 Dose: 325 mg Atorvastatin Calcium (Lipitor) 10 mg PO HS [facility] Last Admin: 04/14/18 21:15 Dose: 10 mg Clopidogrel Bisulfate (Plavix) 75 mg PO DAILY [facility] Last Admin: 04/15/18 09:03 Dose: 75 mg Enalaprilat (Vasotec Inj) 1.25 mg IV.PUSH Q4H PRN PRN Reason: For SBP > 220 or DBP > 120 Last Admin: 04/15/18 09:03 Dose: 1.25 mg Enalaprilat (Vasotec Inj) 2.5 mg IV.PUSH Q6H PRN PRN Reason: sbp above 180 Last Admin: 04/14/18 16:56 Dose: 2.5 mg Sodium Chloride (Ns Inj) 1,000 mls @ 70 mls/hr IV.CONT .[id number] [facility] Last Admin: 04/15/18 14:33 Dose: Not Given Potassium Chloride/Sodium Chloride (Ns + Kcl 20 Meq Inj) 1,000 mls @ 84 mls/hr IV.CONT .[id number] [facility] Last Infusion: 04/15/18 16:57 Dose: Infused Sodium Chloride (Ns Flush) 2 ml IV.FLUSH BID [facility] Last Admin: 04/15/18 09:04 Dose: 2 ml Sodium Chloride (Ns Flush) 2 ml IV.FLUSH PRN PRN PRN Reason: FLUSH AFTER USING IV ACCESS Exam Vital signs: Vital Signs 04/14/18 19:00 04/14/18 20:00 04/14/18 21:00 Temperature 98.1 F Pulse Rate 110 H 100 H 86 Respiratory Rate 16 Blood Pressure 149/77 H Pulse Oximetry 98 04/14/18 22:00 04/14/18 23:00 04/15/18 00:00 Temperature 98.4 F Pulse Rate 96 H 94 H 100 H Respiratory Rate 16 Blood Pressure 143/75 H Pulse Oximetry 98 04/15/18 01:00 04/15/18 02:00 04/15/18 03:00 Temperature 98.2 F Pulse Rate 85 84 93 H Respiratory Rate 16 Blood Pressure 159/77 H Pulse Oximetry 98 04/15/18 04:00 04/15/18 05:00 04/15/18 06:00 Temperature Pulse Rate 81 84 86 Respiratory Rate Blood Pressure Pulse Oximetry 04/15/18 07:00 04/15/18 08:00 04/15/18 09:00 Temperature 98.9 F Pulse Rate 101 H 104 H 92 H Respiratory Rate 16 Blood Pressure 189/100 H Pulse Oximetry 99 99 04/15/18 10:00 04/15/18 10:39 04/15/18 11:00 Temperature 98.0 F Pulse Rate 106 H 101 H Respiratory Rate 16 Blood Pressure 171/76 H Pulse Oximetry 97 100 04/15/18 12:00 04/15/18 13:00 04/15/18 14:00 Temperature Pulse Rate 94 H 80 90 Respiratory Rate Blood Pressure Pulse Oximetry 04/15/18 15:00 04/15/18 16:00 Temperature 98.8 F Pulse Rate 89 87 Respiratory Rate 16 Blood Pressure 155/75 H Pulse Oximetry Intake & Output 04/14/18 04/15/18 04/15/18 18:59 06:59 18:59 Intake Total 240 / 240 1190 / 1190 3335 / 3335 Output Total 1000 / 1000 625 / 625 1800 / 1800 Balance -760 / -760 565 / 565 1535 / 1535 Weight 57.2 kg 55.8 kg Intake: IV 950 / 950 2375 / 2375 NS + KCl 20 mEq Inj 1,000 ML @ 950 / 950 2375 / 2375 84 mls/hr IV.CONT .[id number] [facility] Rx#:[id number] Oral 240 / 240 240 / 240 960 / 960 Output: Urine 1000 / 1000 625 / 625 1800 / 1800 Other: Date of Last Bowel Movement 04/14/18 # Bowel Movements 1 0 1 Results - Labs CBC & Chem 7: 04/14/18 08:15 04/14/18 08:15 Labs: Urine 04/14/18 Range/Units 09:25 Urine Color Yellow (Yellw/Straw) Urine Clarity Hazy H (Clear) Urine pH 7.0 (5.0-8.5) Ur Specific [place] 1.016 (1.002-1.035) Urine Protein Negative (Neg-Trace) mg/dL Urine Glucose (UA) Negative (Negative) mg/dL - Imaging Impressions Carotid Doppler Study 04/14/18 00:00 CONCLUSION: Negative examination for a hemodynamically significant carotid stenosis. Moderate plaque is identified. Plaque could be a source of embolization, especially on the left. . Amandeep Quiñonez MD FACR Caprini VTE Risk Assessment Caprini Risk Assessment Model: Point Value = 1 Point Value = 2 Point Value = 3 Point Value = 5 Age 41-60 Minor surgery BMI > 25 kg/m2 Swollen legs Varicose veins or History of unexplained or recurrent spontaneous Oral contraceptives or hormone replacement Sepsis (< 1 month) Serious lung disease, including pneumonia (< 1 month) Abnormal pulmonary function Acute myocardial infarction Congestive heart failure (< 1 month) History of inflammatory bowel disease Medical patient at bed rest Age 61-74 Arthroscopic surgery Major open surgery (> 45 min) Laparoscopic surgery (> 45 min) Malignancy Confined to bed (> 72 hours) Immobilizing plaster cast Central venous access Age >= 75 History of VTE Family history of VTE Factor V Leiden Prothrombin [id number] Lupus anticoagulant Anticardiolipin antibodies Elevated serum homocysteine Heparin-induced thrombocytopenia Other congenital or acquired thrombophilia Stroke (< 1 month) Elective arthroplasty Hip, pelvis, or leg fracture Acute spinal cord injury (< 1 month) Prophylaxis Regimen: Total Risk Factor Score Risk Level Prophylaxis Regimen 0-1 Low Early ambulation 2 Moderate Order ONE of the following: *Sequential Compression Device (SCD) *Heparin 5000 units SQ BID 3-4 Higher Order ONE of the following medications: *Heparin 5000 units SQ TID *Enoxaparin/Lovenox 40 mg SQ daily (WT < 150 kg, CrCl > 30 mL/min) *Enoxaparin/Lovenox 30 mg SQ daily (WT < 150 kg, CrCl > 10-29 mL/min) *Enoxaparin/Lovenox 30 mg SQ BID (WT < 150 kg, CrCl > 30 mL/min) AND/OR *Sequential Compression Device (SCD) 5 or more Highest Order ONE of the following medications: *Heparin 5000 units SQ TID (Preferred with Epidurals) *Enoxaparin/Lovenox 40 mg SQ daily (WT < 150 kg, CrCl > 30 mL/min) *Enoxaparin/Lovenox 30 mg SQ daily (WT < 150 kg, CrCl > 10-29 mL/min) *Enoxaparin/Lovenox 30 mg SQ BID (WT < 150 kg, CrCl > 30 mL/min) AND *Sequential Compression Device (SCD) Assessment and Plan - Assessment (1) CVA (cerebral vascular accident) Code(s): I63.9 - Cerebral infarction, unspecified Status: Acute <Neto Frank - Last Filed: 04/27/18 23:22> History of Present Illness Primary Care Physician: No Primary Care Physician Chief Complaint: Possible TIA History of Present Illness: Patient is a pleasant 77-year-old female with history of hypertension. Patient came to the ER today after having had a 2-3 minute episode where she became nonresponsive. Per patient's , Ms. Nunez was sitting at the table and dropped a coffee cup. came into the room and found Ms. Nunez unresponsive. Patient was nonverbal. When EMS arrived, patient started to become more responsive. Per EMS, some left-sided weakness and left facial droop was noted. Patient denies recollection of the event. Patient has no prior history of TIA or CVA. Screening CT of the brain in the ER showed no acute findings. ER physician discussed the case with neurology, Dr. Michaels. Admission to [facility] was requested for further evaluation and treatment. Patient did not receive TPA. - Diagnosis (1) Episode of transient neurologic symptoms Inpatient Certification: I certify that the inpatient services were ordered in accordance with Medicare regulations governing the order. This includes certification that hospital inpatient services are reasonable and necessary and in the case of services not specified as inpatient-only under 42 CFR 419.22(n), that they are appropriately provided as inpatient services in accordance to with the 2-midnight benchmark under 43 CFR 412.3(e) Estimated Total Length of Stay (Days): 3 Plans for Post Hospital Care: Not yet determined Review of Systems Eyes: Reports blind spots, Reports bulging eyes, Reports double vision, Reports discharge, Reports dry eyes, Reports floaters, Reports irritation, Reports itchy eyes, Reports pain, Reports sensitivity to light, Reports other, Denies blurry vision, Denies change in vision, Denies loss of vision, Denies requires corrective lenses Comments: No blurred vision, double vision, loss of vision Comments: No chest pain, no palpitations Comments: No shortness of breath, no wheezing Comments: No reflux, no bright red blood per rectum, no dark tarry stools Comments: No dysuria, no hematuria Comments: No muscle pain, no joint pain Comments: See HPI Comments: No history of anxiety, depression, bipolar disorder, or suicidal ideation PMFSH - History History Provided By: Patient, Family Member - Medical History Medical History: Medical History (Last Reviewed 04/14/18 @ 09:49 by Erika Whyte) History of hysterectomy Hypertension Syncope - Tobacco History Second Hand Smoke Exposure: No Smoking Status: Never smoker - Alcohol History How Often Do You Have a Drink Containing Alcohol: Never - Substance Use History Substance History: No History of Abuse - Travel History Recent Travel in the [place] Within the Last 8 Weeks: No Recent Travel Out of the Country Within the Last 8 Weeks: No - Immunization History Tetanus Immunization: Unsure Hx Influenza Vaccine This Season: Yes Medications and Allergies Active Medications: Active Medications Aspirin (Aspirin) 325 mg PO DAILY [facility] Atorvastatin Calcium (Lipitor) 10 mg PO HS [facility] Enalaprilat (Vasotec Inj) 1.25 mg IV.PUSH Q4H PRN PRN Reason: For SBP > 220 or DBP > 120 Sodium Chloride (Ns Inj) 1,000 mls @ 70 mls/hr IV.CONT .[id number] [facility] Last Admin: 04/14/18 08:53 Dose: 70 mls/hr Sodium Chloride (Ns Flush) 2 ml IV.FLUSH BID [facility] Sodium Chloride (Ns Flush) 2 ml IV.FLUSH PRN PRN PRN Reason: FLUSH AFTER USING IV ACCESS Exam Vital signs: Vital Signs 04/14/18 08:04 04/14/18 08:08 04/14/18 08:38 Temperature 98.1 F Pulse Rate 88 87 Respiratory Rate 14 22 Blood Pressure 170/77 H 185/82 H Pulse Oximetry 99 100 99 04/14/18 08:57 Temperature Pulse Rate Respiratory Rate Blood Pressure Pulse Oximetry 99 Intake & Output 04/13/18 04/14/18 04/14/18 18:59 06:59 18:59 Weight 57.2 kg - Constitutional no acute distress - Routine HEENT Exam Head: Present: normocephalic, atraumatic Eye: Present: PERRL ENT: Present: mucous membranes moist - Routine Neck Exam Present: supple - Routine Cardiovascular Exam Present: RRR - Routine Abdominal Exam Present: soft Comments: No guarding, rebound, or rigidity Normal bowel sounds on auscultation - Routine Extremities Exam Comments: No clubbing, cyanosis, or edema - Routine Neurological Exam Present: alert, oriented X3, CN II-XII intact, normal reflexes, normal speech Results - Labs CBC & Chem 7: 04/14/18 08:15 04/14/18 08:15 Labs: Short CBC 04/14/18 Range/Units 08:15 WBC 7.6 (4.0-11.0) th/mm3 Hgb 12.3 (11.6-15.3) gm/dL Hct 36.5 (35.0-46.0) % Plt Count 429 (150-450) th/mm3 [facility] 04/14/18 08:15 Sodium 137 Potassium 4.0 Chloride 104 Carbon Dioxide 21.3 BUN 7 Creatinine 0.62 Calcium 8.4 L Cardiac Enzymes 04/14/18 04/14/18 Range/Units 08:15 08:15 Total Creatine Kinase Cancelled 70 Troponin I Cancelled Less than 0.02 L Liver Function 04/14/18 Range/Units 08:15 Total Bilirubin 0.4 (0.2-1.0) mg/dL AST 14 L (15-37) U/L ALT 21 (10-53) U/L Alkaline Phosphatase 90 (45-117) U/L Albumin 3.7 (3.4-5.0) g/dL - Imaging Impressions Head CTA 04/14/18 00:00 CONCLUSION: 1. Unremarkable CTA of the brain. Chest X-Ray 04/14/18 08:08 CONCLUSION: Head CT 04/14/18 08:08 CONCLUSION: 1. 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 2. Right basal ganglia lacunar infarct of indeterminate age. Neck CTA 04/14/18 08:08 CONCLUSION: 1. Moderate calcified scarring plaquing at the left carotid bifurcation. This is causing some focal moderate stenosis on the order of 50-60%. 2. Mild to moderate calcified atherosclerotic plaquing at the right carotid bifurcation. No focal or significant stenosis involving the right internal carotid artery. Caprini VTE Risk Assessment Caprini VTE Risk Assessment: Moderate/High Risk (score >= 2) Caprini Risk Assessment Model: Point Value = 1 Point Value = 2 Point Value = 3 Point Value = 5 Age 41-60 Minor surgery BMI > 25 kg/m2 Swollen legs Varicose veins or History of unexplained or recurrent spontaneous Oral contraceptives or hormone replacement Sepsis (< 1 month) Serious lung disease, including pneumonia (< 1 month) Abnormal pulmonary function Acute myocardial infarction Congestive heart failure (< 1 month) History of inflammatory bowel disease Medical patient at bed rest Age 61-74 Arthroscopic surgery Major open surgery (> 45 min) Laparoscopic surgery (> 45 min) Malignancy Confined to bed (> 72 hours) Immobilizing plaster cast Central venous access Age >= 75 History of VTE Family history of VTE Factor V Leiden Prothrombin [id number] Lupus anticoagulant Anticardiolipin antibodies Elevated serum homocysteine Heparin-induced thrombocytopenia Other congenital or acquired thrombophilia Stroke (< 1 month) Elective arthroplasty Hip, pelvis, or leg fracture Acute spinal cord injury (< 1 month) Prophylaxis Regimen: Total Risk Factor Score Risk Level Prophylaxis Regimen 0-1 Low Early ambulation 2 Moderate Order ONE of the following: *Sequential Compression Device (SCD) *Heparin 5000 units SQ BID 3-4 Higher Order ONE of the following medications: *Heparin 5000 units SQ TID *Enoxaparin/Lovenox 40 mg SQ daily (WT < 150 kg, CrCl > 30 mL/min) *Enoxaparin/Lovenox 30 mg SQ daily (WT < 150 kg, CrCl > 10-29 mL/min) *Enoxaparin/Lovenox 30 mg SQ BID (WT < 150 kg, CrCl > 30 mL/min) AND/OR *Sequential Compression Device (SCD) 5 or more Highest Order ONE of the following medications: *Heparin 5000 units SQ TID (Preferred with Epidurals) *Enoxaparin/Lovenox 40 mg SQ daily (WT < 150 kg, CrCl > 30 mL/min) *Enoxaparin/Lovenox 30 mg SQ daily (WT < 150 kg, CrCl > 10-29 mL/min) *Enoxaparin/Lovenox 30 mg SQ BID (WT < 150 kg, CrCl > 30 mL/min) AND *Sequential Compression Device (SCD) Assessment and Plan - Assessment (1) Episode of transient neurologic symptoms Code(s): R29.90 - Unspecified symptoms and signs involving the nervous system Status: Deleted Plan: -Patient is a pleasant 77-year-old female with history of hypertension -Patient brought to the ER by EMS after being found by her unresponsive which lasted approximately 2-3 minutes -EMS feels that patient may have had some left-sided weakness and facial droop -Patient given aspirin in the ER -Case discussed between ER physician and neurology on-call, Dr. Michaels. Patient not given TPA. -CT brain (04/14/18) no acute findings -Obtain MRI brain -Obtain MRA brain -Obtain bilateral carotid ultrasound -Observe on telemetry -Obtain echocardiogram -Obtain Holter monitor -Obtain EEG -Await neurology consultation with Dr. Michaels -Allow permissive hypertension -Administer IV fluids -Continue aspirin therapy -Obtain fasting lipid panel, hemoglobin A1c -DVT prophylaxis with SCDs -Supportive care
[2018-04-14 10:03] LABS: Bacteria,Urine Many /hpf; Bilirubin,Urine Negative (Negative); Clarity,Urine Hazy (Clear); Color,Urine Yellow (Yellw/Straw); Glucose,Urine (UA) Negative (Negative); Hyaline Casts,Urine 1 /lpf (0-3); Leukocyte Esterase,Urine Large (Negative); Nitrite,Urine Negative (Negative); Specific Gravity,Urine 1.016 (1.002-1.035); Squamous Epithelial Cell,Urine <1 /hpf (0-5)
[2018-04-14] MEDS: Aspirin 325 MG Tablet PO SCH (10:21)
--- NOTE | 2018-04-14 13:13 | MR ---
EXAM DATE: 04/14/2018 1:03 PM EDT AGE/SEX: 77 years / Female INDICATIONS: CVA. Left sided weakness and facial droop. CLINICAL DATA: This is the patient's initial encounter. Patient reports that signs and symptoms have been present for 1 day and indicates a pain score of 2/10. MEDICAL/SURGICAL HISTORY: Hypertension. Hysterectomy. COMPARISON: [facility] – [place], CT HEAD W/O CONTRAST, 04/14/2018. . TECHNIQUE: Multiplanar, multisequence examination of the brain was performed without contrast. FINDINGS: Cerebrum: The ventricles are normal for age. There is bilateral cortical atrophy. No evidence of mi dline shift, mass lesion, hemorrhage.. No extraaxial fluid collections are seen. The pituitary glan d and suprasellar cistern are normal in configuration. White Matter: Mild chronic white matter changes are seen bilaterally. Posterior Fossa: The cerebellum and brainstem are intact. The 4th ventricle is midline. The cerebel lopontine angle is unremarkable. The cerebellar tonsils are normal in position. Diffusion Imaging: There is some mild increased signal noted in the right basal ganglia suspicious f or a subacute nonhemorrhagic infarct. Otherwise, the diffusion-weighted images are unremarkable. Extracranial: The visualized portions of the orbits are unremarkable. Prominent chronic sinus diseas e involving the left maxillary sinus. CONCLUSION: 1. Questionable mild increased signal in the right basal ganglia on the diffusion-weighted images giles spicious for a subacute nonhemorrhagic infarct. 2. Bilateral cortical atrophy and chronic white matter changes. 3. Prominent chronic sinus disease of the left maxillary sinus. Electronically signed by: Jonathan Carvajal MD 04/14/2018 1:12 PM EDT
--- NOTE | 2018-04-14 13:16 | MR ---
EXAM DATE: 04/14/2018 1:02 PM EDT AGE/SEX: 77 years / Female INDICATIONS: CVA. Left sided weakness and facial droop. CLINICAL DATA: This is the patient's initial encounter. Patient reports that signs and symptoms have been present for 1 day and indicates a pain score of 2/10. MEDICAL/SURGICAL HISTORY: Hypertension. Hysterectomy. COMPARISON: [facility], CTA NECK W CONTRAST W 3D, 04/14/2018. . TECHNIQUE: 3D [id number] MRA was performed. Source images, multiplanar STS MIP, and 3D volum e MIP reconstructions were reviewed. FINDINGS: There is excellent visualization of the major intracranial arteries out to the second-order branch ve ssels. There is no evidence for aneurysm, vessel truncation or stenosis, and no evidence for vascula r malformation. There is a patent right posterior communicating artery. The distal left vertebral art keisha ends in PICA CONCLUSION: 1. Unremarkable MRA of the [place] [facility] [place]. Electronically signed by: Jonathan Carvajal MD 04/14/2018 1:15 PM EDT
--- NOTE | 2018-04-14 15:48 | ECHRPT ---
Indication: CONCLUSIONS The left ventricular systolic function is hyperdynamic with an estimated ejection fraction in the ra nge of 65- 70%. No mitral valve regurgitation. Diffuse calcification of the aortic valve BP: / HR: Rhythm: MEASUREMENTS (Male / Female) Normal Values Technical Quality: 2D ECHO LV Diastolic Diameter PLAX 3.4 cm 4.2 - 5.9 / 3.9 - 5.3 cm LV Systolic Diameter PLAX 2.4 cm IVS Diastolic Thickness 1.0 cm 0.6 - 1.0 / 0.6 - 0.9 cm LVPW Diastolic Thickness 0.8 cm 0.6 - 1.0 / 0.6 - 0.9 cm LV Relative Wall Thickness 0.5 RV Internal Dim ED PLAX 1.8 cm M-MODE Aortic Root Diameter MM 2.6 cm LA Systolic Diameter MM 3.5 cm LA Ao Ratio MM 1.3 AV Cusp Separation MM 1.1 cm FINDINGS LEFT VENTRICLE The left ventricular systolic function is hyperdynamic with an estimated ejection fraction in the ra nge of 65- 70%. Normal left ventricular size. Wall thickness is normal. RIGHT VENTRICLE The right ventricular size is normal. LEFT ATRIUM The left atrial size is normal. RIGHT ATRIUM The right atrial size is normal. ATRIAL SEPTUM Normal atrial septal thickness without atrial level shunting by limited color doppler interrogation. AORTA The aortic root and proximal ascending aorta are not well visualized. MITRAL VALVE Structurally normal mitral valve. No mitral valve regurgitation. AORTIC VALVE Diffuse calcification of the aortic valve. No aortic valve regurgitation. TRICUSPID VALVE Structurally normal tricuspid valve. No tricuspid valve stenosis or regurgitation. PULMONARY VALVE No pulmonary valve regurgitation or stenosis. VESSELS The inferior vena cava is normal in size. PERICARDIUM There is no pericardial effusion. Luiz Galvin MD, FACC (Electronically Signed) Final Date:14 April 2018 15:48
--- NOTE | 2018-04-14 21:01 | MB ---
cc: Leonardo Michaels MD, PhD DATE: 04/14/2018 REASON FOR CONSULTATION: Stroke-alert. HISTORY OF PRESENT ILLNESS: Ms. Nunez is a very pleasant 77-year-old woman who was well until this morning, when she suddenly lost consciousness. When she awoke, she had left-sided weakness and presented to the emergency room as a stroke-alert. In the process of her evaluation, however, the patient's left-sided symptoms completely resolved and her NIH stroke scale then became 0. I discussed the case with Dr. Diaz in the emergency room. Because of the complete resolution of symptoms, I recommended not to give TPA. I did suggest a CT angiogram of the head and neck, which is also obtained. A CTA of the brain was normal, with no evidence for any large vessel occlusion. CTA of the neck showed moderate stenosis of the left carotid artery, rated 50-60% and minimal on the right. No significant stenosis identified. She has no prior history of stroke or TIA. PAST MEDICAL HISTORY: She has a history of hypertension. MEDICATIONS AT HOME: She takes blood pressure medication. She takes aspirin 81 mg daily. PHYSICAL EXAMINATION: VITAL SIGNS: Blood pressure is 187/99, pulse is 171, 26 respiratory rate is 20, temperature is 97.7 degrees. NEUROLOGIC: Higher cortical functions. She is alert. She is oriented x 3. Her speech is normal. Cranial nerves: There is a mild left facial droop. Other cranial nerves are normal. Motor exam demonstrates 5/5 strength of all groups in both upper and lower extremities. There is no drift, skills are normal. Reflexes are symmetric. IMAGING: MRI of the brain shows a very subtle area of diffusion abnormality in the right basal ganglia, consistent with a very tiny right basal ganglia stroke. No hemorrhage. CT of the carotids as noted above. LABORATORY DATA: White count 7600, hemoglobin 12.3, hematocrit 36.5%, platelets 429,000. PT is 10.1, INR 1, aPTT 22. Sodium is 136, potassium is 4, chloride 100, CO2 21.3. The BUN is 7, creatinine 0.62, the glucose is 142, AST 14, ALT 21. Troponin is less than 0.02. IMPRESSION: Right hemisphere, very small stroke in the basal ganglia. Symptoms resolving rapidly. The patient was not a tissue plasminogen activator candidate because of the rapid resolution of symptoms. There is no evidence for any large vessel occlusion to warrant endovascular therapy. RECOMMENDATIONS: At the present time, we will obtain an echocardiogram and monitor cardiac telemetry, rule out cardiogenic embolic source. I also recommend checking lipid panel. Would recommend starting her on Plavix 75 mg daily and stopping the aspirin in about 5 days. Thank you for asking me to see this nice patient in consultation. Leonardo Michaels MD, PhD BO/JW , 08:02 PM , 09:00 PM
--- NOTE | 2018-04-14 21:40 | US ---
EXAM DATE: 04/14/2018 9:36 PM EDT AGE/SEX: 77 years / Female INDICATIONS: Transient ischemic attack. CLINICAL DATA: This is the patient's initial encounter. Patient reports that signs and symptoms have been present for 1 day and indicates a pain score of 0/10. MEDICAL/SURGICAL HISTORY: Hypertension. Syncope. Hysterectomy. COMPARISON: [facility] – [place], CTA NECK W CONTRAST W 3D, 04/14/2018. . VELOCITY PARAMETERS: ICA/CCA Ratio: Right 1.4 , Left 1.6 ICA: Right 126 cm/sec, Left 172 cm/sec CCA: Right 92 cm/sec, Left 106 cm/sec ECA: Right 314 cm/sec, Left 215 cm/sec Vertebral: Right 83 cm/sec antegrade, Left 90 cm/sec antegrade FINDINGS: RIGHT CAROTID: There is no evidence for a hemodynamically significant carotid stenosis. Moderate int imal hyperplasia is present with moderate scattered calcific plaque. LEFT CAROTID: Moderate calcific plaque stenosis on the order of 50-60% with some soft plaque evident as well.. Flow is antegrade in both vertebral arteries. There are no ancillary masses or adenopathy. CONCLUSION: Negative examination for a hemodynamically significant carotid stenosis. Moderate plaque is identified. Plaque could be a source of embolization, especially on the left. . Amandeep Quiñonez MD FACR Electronically signed by: Amandeep Quiñonez MD 04/14/2018 9:38 PM EDT
[2018-04-15] MEDS: Sod Chloride 0.9% Inj 1,000 ML IV.CONT SCH ×2 (01:53→14:33)
[2018-04-15 06:56] LABS: Chol/HDL Ratio 3.43 Ratio; HDL Cholesterol 55.9 mg/dL (40.0-60.0)
[2018-04-15] MEDS: Aspirin 325 MG Tablet PO SCH (09:02)
--- NOTE | 2018-04-15 14:07 | ECG ---
Date Performed: 04/14/2018 Time Performed: 08:36:28 PTAGE: 77 years EKG: Sinus rhythm POSSIBLE LEFT ATRIAL ENLARGEMENT SEPTAL MYOCARDIAL INFARCTION ABNORMAL ECG Nonsepecific ST-T wave ch anges. Compared to PREVIOUS TRACING , minor nonspecific ST-T changes noted. PREVIOUS TRACIN11/23/2017 02 .48 DOCTOR: Hadley Manzo Interpretating Date/Time 04/15/2018 14:07:11
--- NOTE | 2018-04-15 16:02 | P.PNIM ---
Subjective Interval history: No new complaints Pt ambulated well with PT Physical Exam Vital signs: Vital Signs 04/14/18 16:00 04/14/18 17:00 04/14/18 17:21 Temperature Pulse Rate 86 103 H 96 H Respiratory Rate Blood Pressure Pulse Oximetry 04/14/18 19:00 04/14/18 20:00 04/14/18 21:00 Temperature 98.1 F Pulse Rate 110 H 100 H 86 Respiratory Rate 16 Blood Pressure 149/77 H Pulse Oximetry 98 04/14/18 22:00 04/14/18 23:00 04/15/18 00:00 Temperature 98.4 F Pulse Rate 96 H 94 H 100 H Respiratory Rate 16 Blood Pressure 143/75 H Pulse Oximetry 98 04/15/18 01:00 04/15/18 02:00 04/15/18 03:00 Temperature 98.2 F Pulse Rate 85 84 93 H Respiratory Rate 16 Blood Pressure 159/77 H Pulse Oximetry 98 04/15/18 04:00 04/15/18 05:00 04/15/18 06:00 Temperature Pulse Rate 81 84 86 Respiratory Rate Blood Pressure Pulse Oximetry 04/15/18 07:00 04/15/18 08:00 04/15/18 09:00 Temperature 98.9 F Pulse Rate 101 H 104 H 92 H Respiratory Rate 16 Blood Pressure 189/100 H Pulse Oximetry 99 99 04/15/18 10:00 04/15/18 10:39 04/15/18 11:00 Temperature 98.0 F Pulse Rate 106 H 101 H Respiratory Rate 16 Blood Pressure 171/76 H Pulse Oximetry 97 100 04/15/18 12:00 04/15/18 13:00 04/15/18 14:00 Temperature Pulse Rate 94 H 80 90 Respiratory Rate Blood Pressure Pulse Oximetry 04/15/18 15:00 Temperature 98.8 F Pulse Rate 89 Respiratory Rate 16 Blood Pressure 155/75 H Pulse Oximetry Intake & Output 04/14/18 04/15/18 04/15/18 18:59 06:59 18:59 Intake Total 240 / 240 1190 / 1190 1000 / 1000 Output Total 1000 / 1000 625 / 625 Balance -760 / -760 565 / 565 1000 / 1000 Weight 57.2 kg 55.8 kg Intake: IV 950 / 950 1000 / 1000 NS + KCl 20 mEq Inj 1,000 ML @ 950 / 950 1000 / 1000 84 mls/hr IV.CONT .[id number] MICAH Rx#:[id number] Oral 240 / 240 240 / 240 Output: Urine 1000 / 1000 625 / 625 Other: Date of Last Bowel Movement 04/14/18 # Bowel Movements 1 0 Narrative: GENERAL: NAD, AAOx3 SKIN: Warm and dry. HEAD: Normocephalic. No scleral icterus. No injection or drainage. NECK: Supple, trachea midline. No JVD or lymphadenopathy. CARDIO: Regular CHEST: Breath sounds equal bilaterally. No accessory muscle use. ABD: Abdomen soft, non-tender, nondistended. EXT: No cyanosis, or edema. Results - Labs CBC & Chem 7: 04/14/18 08:15 04/14/18 08:15 Laboratory Results - last 24 hr 04/15/18 05:08 Triglycerides 59 Cholesterol 192 LDL Cholesterol, Calc 124 H HDL Cholesterol 55.9 Cholesterol/HDL Ratio 3.43 - Imaging Impressions Carotid Doppler Study 04/14/18 00:00 CONCLUSION: Negative examination for a hemodynamically significant carotid stenosis. Moderate plaque is identified. Plaque could be a source of embolization, especially on the left. . Amandeep Quiñonez MD FACR Head CTA 04/14/18 00:00 CONCLUSION: 1. Unremarkable CTA of the brain. Chest X-Ray 04/14/18 08:08 CONCLUSION: Head CT 04/14/18 08:08 CONCLUSION: 1. 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 2. Right basal ganglia lacunar infarct of indeterminate age. Neck CTA 04/14/18 08:08 CONCLUSION: 1. Moderate calcified scarring plaquing at the left carotid bifurcation. This is causing some focal moderate stenosis on the order of 50-60%. 2. Mild to moderate calcified atherosclerotic plaquing at the right carotid bifurcation. No focal or significant stenosis involving the right internal carotid artery. Head MRI 04/14/18 09:08 CONCLUSION: 1. Questionable mild increased signal in the right basal ganglia on the diffusion-weighted images suspicious for a subacute nonhemorrhagic infarct. 2. Bilateral cortical atrophy and chronic white matter changes. 3. Prominent chronic sinus disease of the left maxillary sinus. Head MRA 04/14/18 09:08 CONCLUSION: 1. Unremarkable MRA of the [place]. Assessment and Plan - Assessment (1) CVA (cerebral vascular accident) Code(s): I63.9 - Cerebral infarction, unspecified Status: Acute Plan: - Patient is a pleasant 77-year-old female with history of hypertension - Patient brought to the ER by EMS after being found by her unresponsive which lasted approximately 2-3 minutes and EMS felt that patient may have had some left-sided weakness and facial droop -Patient was given aspirin in the ER - The patient was not a tissue plasminogen activator candidate because of the rapid resolution of symptoms. 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 Right basal ganglia lacunar infarct of indeterminate age. - Head CTA (04/14/18)--> Unremarkable CTA of the brain. - Carotid Doppler Study (04/14/18) --> Negative examination for a hemodynamically significant carotid stenosis. Moderate plaque is identified. Plaque could be a source of embolization, especially on the left. - Neck CTA (04/14/18) --> Moderate calcified scarring plaquing at the left carotid bifurcation. This is causing some focal moderate stenosis on the order of 50-60%. Mild to moderate calcified atherosclerotic plaquing at the right carotid bifurcation. No focal or significant stenosis involving the right internal carotid artery. - Head MRI (04/14/18) --> Questionable mild increased signal in the right basal ganglia on the diffusion-weighted images suspicious for a subacute nonhemorrhagic infarct. Bilateral cortical atrophy and chronic white matter changes. Prominent chronic sinus disease of the left maxillary sinus. - Head MRA (04/14/18) --> Unremarkable MRA of the [place]. - Telemetry - 2D echocardiogram (04/14/18) --> The left ventricular systolic function is hyperdynamic with an estimated ejection fraction in the range of 65- 70%. No mitral valve regurgitation. Diffuse calcification of the aortic valve - Holter monitor is pending - Appreciate neurology consultation with Dr. Michaels. Pt is being recommended from Neuro standpoint to start Plavix 75 mg daily and stop the aspirin in about 5 days - Pt was allowed permissive HTN, resume Metoprolol 25mg this evening and then tomorrow continue home meds of Losartan 25mg daily and Metoprolol 25mg BID - FLP reviewed, LDL is 124. Pt started on Lipitor. - Hemoglobin A1c is pending - Pt stable and ambulated well with PT today. We will arrange for HHC/PT to check on the pts status/progress followup discharge. - Pt will need to followup with her PCP, Dr. Keating, in 1 week to review pending Holter results - Pt will need to followup with Dr. Michaels in 2-3 weeks. (2) UTI (urinary tract infection) Code(s): N39.0 - Urinary tract infection, site not specified Status: Acute Plan: - Pt with noted abnormal UA at admission - Preliminary urine culture grew out gram negative rods >100,000 CFU - Give Cipro 500mg po x one dose prior to discharge then complete Cipro 500mg BID x 5 days - Will followup on urine cultures. - Attending Attestation Patient examined. Assessment and plan formulated with Teena Patel PA-C. I agree with the above.
[2018-04-15 17:36] LABS: Hemoglobin A1c 5.3 % (4.3-6.0)
--- NOTE | 2018-04-15 17:47 | P.DCO ---
- Physical Therapy Order: Evaluate and treat, Improve ambulation, Strength and gait training - Home Health Nursing Order: Nursing assessment with vital signs - Certification I have seen patient Anais Nunez on 04/15/18. My clinical findings support the need for the requested home health care services because: High risk of falls I certify that my clinical findings support that this patient is homebound because: Unsteady gait/balance
[2018-04-15] MEDS ORDERED: Metoprolol Tartrate 25 MG Tablet PO SCH (18:00)
[2018-04-15] MEDS ORDERED: Ciprofloxacin 500 MG Tablet PO ONE (18:02)
--- NOTE | 2018-04-18 09:19 | HM ---
Date Performed: 04/14/2018 Time Performed: 16:16:00 HOOKUP DATE: 04/14/18 04:16:00 PM Mon ANALYSIS START TIME: 04/14/2018 4:21:00 PM ANALYSIS END TIME: 04/15/2018 4:25:00 PM PATIENT AGE: 77 PATIENT HEIGHT PATIENT WEIGHT DRUG LIST PATIENT DIAGNOSIS TEST NARRATIVE: The patient's average heart rate was 95 BPM. Heart rates greater than 120 B PM were noted 3% of the time. No episodes of bradycardia were noted. No pauses exceeding 2.0 sec onds were noted. 15 ventricular ectopics, which represented < 1% of the total beat count, were no silva. The highest ventricular ectopic frequency occurred from 10:00 PM to 11:00 PM Mon. During this time 6 VE(s) occurred. Ventricular ectopics were observed as 15 isolated beat(s) only. No couplets or runs were noted. 1282 supraventricular ectopics, which represented 1% of the total beat count, were noted. The highest supraventricular ectopic frequency occurred from 01:00 AM to 02:00 AM Tue. During this time 160 SVE(s) occurred. Multiple episodes of ST depression (defined as -1.0 mm or more) were noted in channel 1. The maximum depression of -2.1 mm occurred at 10:03:00 AM Tue. Mult iple episodes of ST depression (defined as -1.0 mm or more) were noted in channel 2. The maximum de pression of -2.0 mm occurred at 10:02:50 AM Tue. Multiple episodes of ST depression (defined as -1.0 mm or more) were noted in channel 3. The maximum depression of -2.2 mm occurred at 08:38:46 PM Mon . TEST INTERPRETATION: Sinus rhythm Frequent PACs Brief episodes of nonsustained atrial tachycardia Infrequent PVCs Signed by : Skylar Santiago
== END 2018-04-15 18:59 | disposition home health service (06) ==
LOC: NEPC 08:02 → NEDA 08:52 → HCIS 10:40
PROVIDERS: ADMIT Hospitalist; ATTEND Hospitalist